=== PATIENT | female | born 1965 | race Two or more races ===

== ENCOUNTER 2020-03-09 10:12 | Inpatient (IN) | payer OTHER ==
[~2020-03-09] VITALS: Ht 152.4 cm; Wt 5.0 kg
[2020-03-09] MEDS ORDERED: LEVOTHYROXINE25 MCG PO (10:54)
== END 2020-03-12 21:30 | disposition home or self-care (01) | DRG 866 ==
LOC: ER 10:12 → SEC-K 18:40 → SURH 18:40
PROVIDERS: ADMIT Internal Medicine; ATTEND Internal Medicine
PROC: 4A033R1 Measurement of Arterial Saturation, Peripheral, Percutaneous Approach (ICD-10-PCS; principal; 2020-03-10)
DX: A90 Dengue fever [classical dengue] (principal); D69.49 Other primary thrombocytopenia; E03.9 Hypothyroidism, unspecified; R79.89 Other specified abnormal findings of blood chemistry